=== PATIENT | male | born 1985 | race Caucasian/White ===

== ENCOUNTER 2021-06-17 16:04 | Emergency (ER) | payer MEDICAID, SELFPAY ==
[2021-06-17] VITALS (26 sets, daily range): BP systolic 138; BP diastolic 87; PULSE 88–122; RESP 14–26; TEMP 36.4; O2SAT 95–99
--- NOTE | 2021-06-17 16:39 | NUR.NOTE ---
Block Placer spoke with patients sister to obtain patient history. Patient admitted to her that he has thoughts of hurting himself. Sister states that the family has a history of bipolar and schizophrenia. Patient reports to filing writer that he does hear voices. Sister states the patient does not have a formal diagnosis but he has extreme highs and lows.He stood on a amanda but did not jump. Patient admitted to injecting cocaine prior to coming into the hospital.
[2021-06-17 17:05] LABS: Abs Immature Grans 0.04 10^3/uL (0.0-0.06); Absolute Basophil Count 0.05 10^3/uL (0.0-0.2); Absolute Eosinophil Count 0.07 10^3/uL (0.0-0.7); Absolute Lymphocyte Count 1.15 10^3/uL (1.2-3.4); Absolute Monocyte Count 1.15 10^3/uL (0.1-0.8); Absolute Neutrophil Count 9.54 10^3/uL (1.2-6.7); Basophils % 0.4; Eosinophils % 0.6; HCT 37.7 % (40.0-50.0); HGB 12.7 g/dL (13.5-17.5); Immature Grans % 0.3; Lymphocytes % 9.6; MCHC 33.7 % (32.0-36.0); MCV 86.1 fL (80-95); Monocytes % 9.6; Neutrophils % 79.5; Nucleated RBC 0 %; Platelet Count 296 10^3/uL (130-400); RBC 4.38 10^6/uL (4.36-5.78); RDW 12.6 % (11.8-14.1); RDW-SD 40.1 fL
[2021-06-17] MEDS: LORazepam 1 MG TAB PO (17:11)
[2021-06-17 17:34] LABS: ALT 44 U/L (16-63); AST 21 U/L (15-37); Albumin 3.6 g/dL (3.4-5.0); Alkaline Phosphatase 111 U/L (46-116); Anion Gap 9.1 mmol/L (3-11); BUN 16 mg/dL (7-18); Bilirubin, Total 0.3 mg/dL (0.2-1.0); CO2 27.9 mmol/L (21.0-32.0); CREATININE 0.9 mg/dL (0.70-1.30); Calcium 8.7 mg/dL (8.5-10.1); Chloride 102 mmol/L (98-107); Glucose 92 mg/dL (74-106); Potassium 3.6 mmol/L (3.5-5.1); Sodium 139 mmol/L (136-145); TSH (W/Ref FT4) 1.04 uIU/mL (0.36-3.74); Total Protein 8.1 g/dL (6.4-8.2)
[2021-06-17 17:37] LABS: Acetaminophen < 2 ug/mL (10-30); Salicylate < 2.8 mg/dL (<2.8)
[2021-06-17 17:49] LABS: ETHANOL BLOOD < 3.0 mg/dL (<10)
[2021-06-17] MEDS: Lidocaine 2% Jelly 6 ML SYR (18:15)
--- NOTE | 2021-06-17 18:43 | ED.GENADUL_ITS ---
Discharge Plan Disposition Patient Disposition: [facility] Condition: Stable Discharge Details Clinical Impression: Opioid dependence, Suicidal ideations Primary Care Provider: Unknown,Unknown ED Provider: Bran Wharton Home Meds and New Rx's Prescriptions: No Action hydroxyzine HCl 50 mg tablet 50 mg PO QHS 0RF Vivitrol 380 mg suspension,extended rel recon 380 mg IM QMONTH 0RF Medical Decision Making <NORMAN Mccullough - Last Filed: 06/18/21 17:21> Patient is alert and oriented and medically cleared for psychiatric assessment He initially was tachycardic, at time of reassessment his pulse was 98 He has been cooperative throughout stay, initially expressed frustration with tobacco policy He was offered nicotine patch and inhaler He was given 3 mg of Ativan, 1 mg upon initial presentation and then 2 mg subsequently, sleeping at time of reassessment Mild leukocytosis at 12,000, no obvious source of infection Tox came positive for benzos, positive for cocaine, and positive for THC, patient admits to using all of these medications and as he was at rehab recently, he was given benzodiazepines reportedly during his stay Toya, mental health provider did assess pt in ED, but feels unable to contract for safety at this time. will place patient on an impairment hold for reassessment in the emergency department tomorrow morning Patient is calm and cooperative at time of reassessment Of note, patient was experiencing some urinary retention, likely drug in the, he had 540 cc of urine in his bladder therefore straight catheter was placed He is not able to urinate post event without difficulty signed out to Dr Mancera pending reassessment in the AM at 2305 06/18/21 9:29 --I received signout of patient at [address] Mancera notes no significant events overnight, plan at signout is to await psychiatric reevaluation. I did call [facility] and asked for consultation regarding substance abuse. Will reach out to [facility] human services to request reevaluation at this time. Patient is noting anxiety and requesting additional dosing of Ativan. Ativan 2 mg p.o. ordered. Medical Records Medical records reviewed: Yes I reviewed the patient's medical records. Lab Data Lab results reviewed: Yes I reviewed the patient's lab results. ECG Data Prior ECG tracings: available for review <Bran Wharton MD - Last Filed: 06/21/21 10:14> Patient is alert and oriented and medically cleared for psychiatric assessment He initially was tachycardic, at time of reassessment his pulse was 98 He has been cooperative throughout stay, initially expressed frustration with tobacco policy He was offered nicotine patch and inhaler He was given 3 mg of Ativan, 1 mg upon initial presentation and then 2 mg subsequently, sleeping at time of reassessment Mild leukocytosis at 12,000, no obvious source of infection Tox came positive for benzos, positive for cocaine, and positive for THC, patient admits to using all of these medications and as he was at rehab recently, he was given benzodiazepines reportedly during his stay Toya, mental health provider did assess pt in ED, but feels unable to contract for safety at this time. will place patient on an impairment hold for reassessment in the emergency department tomorrow morning Patient is calm and cooperative at time of reassessment Of note, patient was experiencing some urinary retention, likely drug in the, he had 540 cc of urine in his bladder therefore straight catheter was placed He is not able to urinate post event without difficulty signed out to Dr Mancera pending reassessment in the AM at 2305 06/18/21 9:29 --I received signout of patient at [address] Mancera notes no significant events overnight, plan at signout is to await psychiatric reevaluation. I did call [facility] and asked for consultation regarding substance abuse. Will reach out to [facility] to request reevaluation at this time. Patient is noting anxiety and requesting additional dosing of Ativan. Ativan 2 mg p.o. ordered. 1934 --patient was seen by [facility] and [facility]. 06/20/21 1600 care transition myself from Domenica Huff PA-C. Please see her initial note regarding history, presentation and exam. In brief, patient is a pleasant 35-year-old awaiting placement for suicidality. Patient has been having some symptoms of withdrawal from opiates. Has been receiving as needed Ativan throughout the course of the day. Plan is for him to be possibly transitioned to psychiatric facility tomorrow. Patient had increased anxiety. Is specifically asking for cigarettes. He declined any nicotine replacement. He is requesting more Ativan. Patient given 1 mg of Ativan. At the end of my shift, care transition to care about the with disposition pending. RS -- 06/21/21 1011 --patient has been accepted at [facility]. I spoke with Dr. Owens, discussed ED presentation and course, he will accept the patient in transfer. Care management to arrange transportation. <NORMAN Kim - Last Filed: 06/20/21 23:44> Patient is alert and oriented and medically cleared for psychiatric assessment He initially was tachycardic, at time of reassessment his pulse was 98 He has been cooperative throughout stay, initially expressed frustration with tobacco policy He was offered nicotine patch and inhaler He was given 3 mg of Ativan, 1 mg upon initial presentation and then 2 mg subsequently, sleeping at time of reassessment Mild leukocytosis at 12,000, no obvious source of infection Tox came positive for benzos, positive for cocaine, and positive for THC, patient admits to using all of these medications and as he was at rehab recently, he was given benzodiazepines reportedly during his stay Toya, mental health provider did assess pt in ED, but feels unable to contract for safety at this time. will place patient on an impairment hold for reassessment in the emergency department tomorrow morning Patient is calm and cooperative at time of reassessment Of note, patient was experiencing some urinary retention, likely drug in the, he had 540 cc of urine in his bladder therefore straight catheter was placed He is not able to urinate post event without difficulty signed out to Dr Mancera pending reassessment in the AM at 2305 06/18/21 9:29 --I received signout of patient at [address] Mancera notes no significant events overnight, plan at signout is to await psychiatric reevaluation. I did call [facility] and asked for consultation regarding substance abuse. Will reach out to [facility] human services to request reevaluation at this time. Patient is noting anxiety and requesting additional dosing of Ativan. Ativan 2 mg p.o. ordered. 1934 --patient was seen by [facility] and [facility]. 06/20/21 1600 care transition myself from Domenica Huff PA-C. Please see her initial note regarding history, presentation and exam. In brief, patient is a pleasant 35-year-old awaiting placement for suicidality. Patient has been having some symptoms of withdrawal from opiates. Has been receiving as needed Ativan throughout the course of the day. Plan is for him to be possibly transitioned to psychiatric facility tomorrow. Patient had increased anxiety. Is specifically asking for cigarettes. He declined any nicotine replacement. He is requesting more Ativan. Patient given 1 mg of Ativan. At the end of my shift, care transition to care about the with disposition pending. HPI <NORMAN Mccullough - Last Filed: 06/18/21 17:21> General Date/Time Provider Initiated Documentation: 06/17/21 16:17 . HPI Narrative: This 35-year-old gentleman with history of IV cocaine use and IV Suboxone use presents with suicidal ideation. Denies any chest pain or shortness of breath. Denies specific plan today but yesterday he felt like he wanted to overdose on cocaine. He states occasionally he also uses kratom. He states that he has auditory and visual hallucinations. Denies any attempts to harm self. Related Data Home Medications Medication Instructions Recorded Confirmed hydroxyzine HCl 50 mg tablet 50 mg PO QHS 06/21/20 06/17/21 naltrexone microspheres 380 mg 380 mg IM QMONTH 06/21/20 intramuscular suspension,extended release (Vivitrol) Allergies Allergy/AdvReac Type Severity Reaction Status Date / Time No Known Allergies Allergy Verified 06/17/21 16:21 General Stated Complaint: PsychEval TAI: 2 Review of Systems <NORMAN Mccullough - Last Filed: 06/18/21 17:21> All systems reviewed & are unremarkable except as noted in HPI and below PFSH <NORMAN Mccullough - Last Filed: 06/18/21 17:21> All Active Problems (Updated 06/18/21 @ 17:21 by NORMAN Mccullough) Suicidal ideations (Acute) ADHD (Acute) Opioid dependence (Acute) Anxiety (Chronic) Social History Smoking/Tobacco Use Status: Current every day Smoking risk assessment performed?: Yes Alcohol Intake: former Drug use: Binges Substance use type: crack/cocaine, IV drugs and methamphetamine Do you feel safe at home: Yes Do you feel safe in your relationship?: Yes Exam <NORMAN Mccullough - Last Filed: 06/18/21 17:21> Const General: cooperative and no acute distress Eyes Pupils: PERRL Resp Effort & Inspection: normal respiratory effort Auscultation: clear to auscultation bilaterally Cardio Rate: tachycardic Rhythm: regular rhythm Skin Other: No obvious cellulitis Track wilson noted Neuro General: patient alert and patient oriented x3 Cranial Nerves: CN's II-XI intact bilaterally Cognition: normal cognition Psych Appearance: disheveled Affect: sad Attitude: cooperative Thought Process: tangential Thought Content: suicidality Insight: limited Judgment: limited Course <NORMAN Mccullough - Last Filed: 06/18/21 17:21> Vital Signs Vital signs: Vital Signs Temperature 36.4 C L 06/17/21 16:06 Pulse 122 H 06/17/21 16:06 Respiratory Rate 16 06/17/21 16:06 Blood Pressure 138/87 06/17/21 16:06 Pulse Oximetry 99 06/17/21 16:06 Temperature 36.4 C L 06/17/21 16:06 Temperature Source Skin 06/17/21 16:06 Pulse 122 H 06/17/21 16:06 Pulse 106 H 06/17/21 18:40 Respiratory Rate 25 H 06/17/21 18:40 Respiratory Effort 06/17/21 16:25 Blood Pressure 138/87 06/17/21 16:06 Blood Pressure Position Sitting 06/17/21 16:06 Pulse Oximetry 95 06/17/21 18:40 Oxygen Delivery Method Room Air 06/17/21 16:06 Oxygen Flow Rate 0 06/17/21 16:06 Pain Level 8 06/17/21 16:06 Comment 06/17/21 16:06 Lab/Test Results Lab/Test Results: Laboratory Tests Range/Units 06/17/21 06/17/21 06/17/21 16:50 16:50 16:50 WBC (4.4-10.8) 10^3/uL 12.00 H RBC (4.36-5.78) 10^6/uL 4.38 Hgb (13.5-17.5) g/dL 12.7 L Hct (40.0-50.0) % 37.7 L MCV (80-95) fL 86.1 MCH (27.0-33.0) pg 29.0 MCHC (32.0-36.0) % 33.7 RDW (11.8-14.1) % 12.6 Plt Count (130-400) 10^3/uL 296 MPV (8.0-11.0) fL 9.0 Immature Gran % 0.3 Neutrophils % 79.5 Lymphocytes % 9.6 Monocytes % 9.6 Eosinophils % 0.6 Basophils % 0.4 Nucleated RBC % % 0 Absolute Neutrophils (1.2-6.7) 10^3/uL 9.54 H Absolute Lymphocytes (1.2-3.4) 10^3/uL 1.15 L Absolute Monocytes (0.1-0.8) 10^3/uL 1.15 H Absolute Eosinophils (0.0-0.7) 10^3/uL 0.07 Absolute Basophils (0.0-0.2) 10^3/uL 0.05 Sodium (136-145) mmol/L 139 Potassium (3.5-5.1) mmol/L 3.6 Chloride (98-107) mmol/L 102 Carbon Dioxide (21.0-32.0) mmol/L 27.9 Anion Gap (3-11) mmol/L 9.1 BUN (7-18) mg/dL 16 Creatinine (0.70-1.30) mg/dL 0.9 Estimated GFR/1.73 m2 (mL/min/1.73m2) >= 60.00 Glucose (74-106) mg/dL 92 Calcium (8.5-10.1) mg/dL 8.7 Total Bilirubin (0.2-1.0) mg/dL 0.3 AST (15-37) U/L 21 ALT (16-63) U/L 44 Alkaline Phosphatase (46-116) U/L 111 Total Protein (6.4-8.2) g/dL 8.1 Albumin (3.4-5.0) g/dL 3.6 TSH (0.36-3.74) uIU/mL 1.04 Salicylates (<2.8) mg/dL < 2.8 Acetaminophen (10-30) ug/mL < 2 Ethyl Alcohol (<10) mg/dL < 3.0 Sign Out <NORMAN Mccullough - Last Filed: 06/18/21 17:21> Sign Out Data: Sign Out Comment: on hold by for reassessment in AM for SI/polysubstance abuse SI currently, no plan Last updated by Domenica Huff PA at 06/17/21 23:23 Sign Out Comment: No events overnight. Awaiting placement. Last updated by Mckenzie Rojas DO at 06/21/21 07:12 Sign Out Comment: Stable throughout the evening. No intervention required. Reassessment in the morning. Last updated by Arturo Mancera DO at 06/18/21 07:05 Sign Out Comment: Being held for inpatient treatment. Seen by [facility]. Last updated by Bran Wharton MD at 06/18/21 19:59 Sign Out Comment: Stable throughout the night. Mental health reassessment in the morning. Last updated by Arturo Mancera DO at 06/19/21 07:56 Sign Out Comment: Patient signed out to Dr. Jimenez at time of shift change with voluntary inpatient placement pending for suicidality. Patient calm and cooperative today, requested Ativan, received 1 mg p.o. Ativan this afternoon. Last updated by Mary Wharton MD at 06/19/21 15:44 Sign Out Comment: VOluntary, awaits ? brattleboo in AM. Villalejuan jose requested trop/EKG which were performed. Last updated by Oscar Jimenez MD at 06/19/21 22:23 Sign Out Comment: No events overnight. Remains voluntary. Awaiting placement. Last updated by Mckenzie Rojas DO at 06/20/21 08:01 Sign Out Comment: MH, voluntary, SI, pending placement, opiate WD Last updated by Domenica Huff PA at 06/20/21 15:47 Sign Out Comment: Patient department for voluntary placement at psychiatric facility for suicidality and drug abuse. Plan is for mental health to reassess in the morning with hopeful transfer facility. Has been using Ativan intermittently to help with reported withdrawal symptoms. Last updated by Yudelka Veronica PA at 06/20/21 23:49
--- NOTE | 2021-06-17 18:45 | RT.EKG_ITS ---
APPROVED REPORT Exam: Resting ECG Reason for Exam: tachycardia Patient Location: E HR:92 bpm ECG Measurements Heart Rate 92 AXIS OH 135 P 82 QRSd 93 QRS 76 QT 361 T 58 QTc 447 Conclusion Incomplete analysis due to missing data in precordial lead(s) Sinus rhythm...normal P axis, V-rate 60- 99 Anterior infarct, age indeterminate...Q >35mS, T neg, in V2-V5 Physician: no stemi
[2021-06-17 18:47] LABS: *AMPHETAMINES SCREEN URINE Negative (Negative); *BARBITURATES SCREEN URINE Negative (Negative); *BENZODIAZEPINES SCREEN URINE Positive (Negative); Cannabinoids THC Positive (Negative); Cocaine Screen,Urine Positive (Negative); METHADONE URINE SCREEN Negative (Negative); OPIATES URINE SCREEN Negative (Negative); Tricyclic Antidepressants Negative (Negative)
[2021-06-17] MEDS: LORazepam 1 MG TAB 2 MG PO (21:24)
[2021-06-18] VITALS: PULSE 98; RESP 21
[2021-06-18 00:10] VITALS: PULSE 93; RESP 20
[2021-06-18 00:20] VITALS: PULSE 91; RESP 20
[2021-06-18 00:30] VITALS: PULSE 107; RESP 20
[2021-06-18 00:40] VITALS: RESP 14
--- NOTE | 2021-06-18 09:02 | NUR.NOTE ---
Nursing Note:Margie [phone] sister
[2021-06-18 09:27] VITALS: BP 113/75; PULSE 82; TEMP 36.8; O2SAT 98
[2021-06-18] MEDS: LORazepam 1 MG TAB (09:27)
--- NOTE | 2021-06-18 12:52 | CMSP_ITS ---
- If Service Date Differs Date of service: 06/18/21 Time of Service: 12:52 Care Management Safety Plan Status: Voluntary - Reason for Wait Reason for Wait: Inpatient Admission VOLUNTARY FOR INPATIENT PSYCHIATRIC STABILIZATION. Patient is appropriate in all interactions since arriving at [facility]; Pt has demonstrated appropriate coping and communication skills, has articulated his or her needs and concerns and is fully engaged during staff interactions. A huddle was done to discuss this safety plan at 12:35pm: Dr. Wharton, ED Provider, Nursing Vendor Relationship Manager, RIGO Montalvo, Chari, and GAYATRI Elizabeth, in attendance. Safety plan has been established with patient, and care team, to adhere to patient goals, identify restrictions based on behavioral status, address nutrition, and determine allowed personal belongings, tools for hygiene and personal care. Determine level of activity including ambulation, level of supervision, visitors, and determine privileges based on behaviors and level of engagement by pt. [place] will continue to be screened according to protocol by [facility], while waiting for placement at an appropriate psych facility. He is here voluntarily, however if he chooses to leave [place] he will need to be EE'd per [facility] meter engineer. SAFETY PLAN: 1. Will remain on suicide precautions. In Paper Clothes 2. Will remain in room under direct supervision of one-on-one staff at all times provided by [employer]; LIG[employer], RATCHET SETTER ornamental brick installer. 3. May have paper cups, plates, finger foods as well as a cardboard spoon with which to eat meals. 4. Follow [facility] Management of the Admitted Behavioral Health Patient policy. 5. Comfort bath system only, shower permitted with escort at RN discretion. 6. Personal belongings: will be limited to personal cell phone. Patient has been cooperative, calm and appropriate and was granted cell phone privileges at RN discretion. 7. Visitors- Limited to family at this time at RN discretion. His sister Margie has been identified at a good support person. 8. Activities: soft cart items, coloring w/ crayons, tablet, music therapy per RN discretion. 9. Bathroom privileges with escort in the ED, available in room without limitation on M/S. 10. Phone: contact limited to family at this time, via cordless phone or personal cell phone at RN discretion. 11. Due to VOLUNTARY status, if patient wishes to leave [facility], staff will contact [facility] Crisis Screener ([phone]) and On-Call Weather Stripper ([phone]) as soon as possible. In the event of elopement, notify [facility] Police ([phone]). Patient is currently voluntarily at [facility] and seeking inpatient admission when a bed becomes available. [facility] Frontline Fish And Wildlife Biologist will continue seeking placement. Please contact the Property Caretaker Weather Stripper ([phone]) and [facility] Fish And Wildlife Biologist ([phone]) for any needed changes in the Safety Plan. Safety plan has been provided to interdepartmental care team.
--- NOTE | 2021-06-18 15:54 | PDOC.ERCMPRO ---
- If Service Date Differs Date of service: 06/18/21 Time of Service: 15:54 Care Management Progress Note S/O: [place] has been calm, cooperative and appropriate throughout his ER admission. He requires 1:1 observation. CM huddled with ER staff and the consensus is that cell phone privileges should be granted to [place]. His cell phone will remain in his room at RN discretion. [facility] will continue to screen [place] per protocol and the clinician sent referrals to appropriate inpatient psych facilities. A: 35 year old male who presented to the ER on 06/17/21 for SI and substance use. P: [place] will continue to be screened according to protocol by [facility], while waiting for placement at an appropriate psych facility. He is here voluntarily, however if he chooses to leave [place] he will need to be EE'd per [facility] manager clinical pharmacy. CM will continue to support disposition planning. - MH Services (Omit if N/A) Referred to Internal [facility] (ED embedded) case reviewer?: Yes - Status Status: Voluntary - Reason for Wait Reason for Wait: Inpatient Admission (Waiting for placement at an appropriate inpatient psych facility.)
--- NOTE | 2021-06-18 18:51 | PDOC.MHCN_ITS ---
Date of service: 06/18/21 Time of Service: 11:30 Mental Health Crisis Note Presenting Issue How did you arrive at the ED and why did you come: Client arrived to ED for SI with a plan and high intent. Precipitating Factors Client is endorsing SI. Assessment will be used as a preliminary. Client was struggling to engage due to being in pain from the substances he used the night before. More indepth assessment will be done tomorrow (06/19), with use of assessment tools. If client is still unable to engage, assessment will need to be conducted in person. Clients sister reports that the client is endorsing SI w ith a plan to overdose. Clients sister reports multiple overdose attempts over the last few months. Clients sister also reports that the client reports hallucinations and/or delusions. Client is currently seeking voluntary psychiatric treatment. Disposition BEHAVIOR: Clam, not engaged. Client struggled to follow questions and could not keep his eyes open. EYE CONTACT: Client could not keep his eyes open. MOOD: Client reports he is in pain. Client appears to be withdrawn. AFFECT: Flat. APPETITE: Not assessed at this time. SLEEP(trouble falling/staying asleep: Not assessed at this time. Plan Client is in need of psychiatric treatment for both mental health and substance abuse. Referrals will be sent to , [facility], [place], and [facility]. If client attempts to leave, please contact [facility] immediately, as an EE may have to be written. Client is currently willing to stay voluntarily. Sister reports that the client may attempt to leave due to nicotine withdrawls. Signature Clinician's Name/Title: Jenny Fuentes, ESC
--- NOTE | 2021-06-18 20:48 | NUR.NOTE ---
Patient took a shower and changed his clothing, I also gave him fresh linens, cleaned the floor and refreshed drinks.
[2021-06-18] MEDS: LORazepam 1 MG TAB PO ×2 (21:22→23:18)
[2021-06-18] MEDS: Nicotine 21 MG/24 HR PATCH (22:36)
[2021-06-18] MEDS: diphenhydrAMINE 25 MG CAP 50 MG PO (23:18)
[2021-06-18] MEDS: Melatonin 3 MG TAB PO (23:18)
[2021-06-19 10:50] VITALS: BP 124/84; PULSE 83; RESP 20; TEMP 36.7; O2SAT 98
--- NOTE | 2021-06-19 12:11 | W.EDPROG ---
<Mckenzie Rojas DO - Last Filed: 06/21/21 07:44> Date of service: 06/21/21 Time of Service: 07:44 Medical Decision Making <Mary Wharton MD - Last Filed: 06/26/21 07:45> Patient signed out to me at time of shift change by Dr. Mancera with mental health reassessment pending. Please see his note for initial history and physical. No acute events during my shift. Patient calm cooperative. 06/20/21 Dr. Rojas 08 -- No acute events overnight. Case endorsed to oncoming provider to f/u with mental health and care management pending placement. 1500 06/20/21 patient assessed on several occasions, very anxious, gave clonidine for chills associated with slight withdrawal symptoms and gave 2 mg of Ativan x2 for anxiety likely withdrawal, tolerated well, calm, cooperative at time of reassessment 06/21/21 Dr. Rojas 1230am -- Pt requesting a dose of 2mg ativan for anxiety. <Mckenzie Rojas DO - Last Filed: 06/21/21 07:44> Patient signed out to me at time of shift change by Dr. Mancera with mental health reassessment pending. Please see his note for initial history and physical. 06/20/21 Dr. Rojas 08 -- No acute events overnight. Case endorsed to oncoming provider to f/u with mental health and care management pending placement. 149906/20/21 patient assessed on several occasions, very anxious, gave clonidine for chills associated with slight withdrawal symptoms and gave 2 mg of Ativan x2 for anxiety likely withdrawal, tolerated well, calm, cooperative at time of reassessment 06/21/21 Dr. Rojas 1230am -- Pt requesting a dose of 2mg ativan for anxiety. Medical Records Medical records reviewed: Yes I reviewed the patient's medical records. <NORMAN Mccullough - Last Filed: 06/21/21 08:44> Patient signed out to me at time of shift change by Dr. Mancera with mental health reassessment pending. Please see his note for initial history and physical. 06/20/21 Dr. Rojas 08 -- No acute events overnight. Case endorsed to oncoming provider to f/u with mental health and care management pending placement. 1500 06/20/21 patient assessed on several occasions, very anxious, gave clonidine for chills associated with slight withdrawal symptoms and gave 2 mg of Ativan x2 for anxiety likely withdrawal, tolerated well, calm, cooperative at time of reassessment Sign Out <Mary Wharton MD - Last Filed: 06/26/21 07:45> Sign Out Data: Sign Out Comment: on hold by for reassessment in AM for SI/polysubstance abuse SI currently, no plan Last updated by Domenica Huff PA at 06/17/21 23:23 Sign Out Comment: No events overnight. Awaiting placement. Last updated by Mckenzie Rojas DO at 06/21/21 07:12 Sign Out Comment: Stable throughout the evening. No intervention required. Reassessment in the morning. Last updated by Arturo Mancera DO at 06/18/21 07:05 Sign Out Comment: Being held for inpatient treatment. Seen by [facility]. Last updated by Bran Wharton MD at 06/18/21 19:59 Sign Out Comment: Stable throughout the night. Mental health reassessment in the morning. Last updated by Arturo Mancera DO at 06/19/21 07:56 Sign Out Comment: Patient signed out to Dr. Jimenez at time of shift change with voluntary inpatient placement pending for suicidality. Patient calm and cooperative today, requested Ativan, received 1 mg p.o. Ativan this afternoon. Last updated by Mary Wharton MD at 06/19/21 15:44 Sign Out Comment: VOluntary, awaits ? ledylebocharlene in AM. [place]a requested trop/EKG which were performed. Last updated by Oscar Jimenez MD at 06/19/21 22:23 Sign Out Comment: No events overnight. Remains voluntary. Awaiting placement. Last updated by Mckenzie Rojas DO at 06/20/21 08:01 Sign Out Comment: MH, voluntary, SI, pending placement, opiate WD Last updated by Domenica Huff PA at 06/20/21 15:47 Sign Out Comment: Patient department for voluntary placement at psychiatric facility for suicidality and drug abuse. Plan is for mental health to reassess in the morning with hopeful transfer facility. Has been using Ativan intermittently to help with reported withdrawal symptoms. Last updated by Yudelka Veronica PA at 06/20/21 23:49 Discharge Plan Disposition Patient Disposition: [facility] Condition: Stable Discharge Details Clinical Impression: Opioid dependence, Suicidal ideations Primary Care Provider: Unknown,Unknown ED Provider: Bran Wharton Home Meds and New Rx's Prescriptions: No Action hydroxyzine HCl 50 mg tablet 50 mg PO QHS 0RF Vivitrol 380 mg suspension,extended rel recon 380 mg IM QMONTH 0RF Discharge Data Discharge Date/Time-TO BE ENTERED AT DEPARTURE: 06/21/21 12:35 <Oscar Jimenez MD - Last Filed: 06/19/21 17:38> Pt remained stable, remains voluntary. Vital Signs Vital signs: Vital Signs Temperature 36.4 C L 06/17/21 16:06 Pulse 122 H 06/17/21 16:06 Respiratory Rate 16 06/17/21 16:06 Blood Pressure 138/87 06/17/21 16:06 Pulse Oximetry 99 06/17/21 16:06 Temperature 36.7 C 06/19/21 10:50 Temperature Source Oral 06/19/21 10:50 Pulse 83 06/19/21 10:50 Pulse 107 H 06/18/21 00:30 Respiratory Rate 20 06/19/21 10:50 Respiratory Effort 06/17/21 16:25 Blood Pressure 124/84 06/19/21 10:50 Blood Pressure Position Sitting 06/17/21 16:06 Pulse Oximetry 98 06/19/21 10:50 Oxygen Delivery Method Room Air 06/19/21 10:50 Oxygen Flow Rate 0 06/19/21 10:50 Pain Level 8 06/17/21 16:06 Comment 06/17/21 16:06 Lab/Test Results Lab/Test Results: Laboratory Tests Range/Units 06/17/21 06/17/21 06/17/21 16:50 16:50 16:50 WBC (4.4-10.8) 10^3/uL 12.00 H RBC (4.36-5.78) 10^6/uL 4.38 Hgb (13.5-17.5) g/dL 12.7 L Hct (40.0-50.0) % 37.7 L MCV (80-95) fL 86.1 MCH (27.0-33.0) pg 29.0 MCHC (32.0-36.0) % 33.7 RDW (11.8-14.1) % 12.6 Plt Count (130-400) 10^3/uL 296 MPV (8.0-11.0) fL 9.0 Immature Gran % 0.3 Neutrophils % 79.5 Lymphocytes % 9.6 Monocytes % 9.6 Eosinophils % 0.6 Basophils % 0.4 Nucleated RBC % % 0 Absolute Neutrophils (1.2-6.7) 10^3/uL 9.54 H Absolute Lymphocytes (1.2-3.4) 10^3/uL 1.15 L Absolute Monocytes (0.1-0.8) 10^3/uL 1.15 H Absolute Eosinophils (0.0-0.7) 10^3/uL 0.07 Absolute Basophils (0.0-0.2) 10^3/uL 0.05 Sodium (136-145) mmol/L 139 Potassium (3.5-5.1) mmol/L 3.6 Chloride (98-107) mmol/L 102 Carbon Dioxide (21.0-32.0) mmol/L 27.9 Anion Gap (3-11) mmol/L 9.1 BUN (7-18) mg/dL 16 Creatinine (0.70-1.30) mg/dL 0.9 Estimated GFR/1.73 m2 (mL/min/1.73m2) >= 60.00 Glucose (74-106) mg/dL 92 Calcium (8.5-10.1) mg/dL 8.7 Total Bilirubin (0.2-1.0) mg/dL 0.3 AST (15-37) U/L 21 ALT (16-63) U/L 44 Alkaline Phosphatase (46-116) U/L 111 Total Protein (6.4-8.2) g/dL 8.1 Albumin (3.4-5.0) g/dL 3.6 TSH (0.36-3.74) uIU/mL 1.04 Salicylates (<2.8) mg/dL < 2.8 Urine Opiates Screen (Negative) Urine Methadone Screen (Negative) Acetaminophen (10-30) ug/mL < 2 Ur Barbiturates Screen (Negative) Ur Tricyclics Screen (Negative) Ur Amphetamines Screen (Negative) U Benzodiazepines Scrn (Negative) Urine Cocaine Screen (Negative) Ur THC Screen (Negative) Ethyl Alcohol (<10) mg/dL < 3.0 Range/Units 06/17/21 18:15 WBC (4.4-10.8) 10^3/uL RBC (4.36-5.78) 10^6/uL Hgb (13.5-17.5) g/dL Hct (40.0-50.0) % MCV (80-95) fL MCH (27.0-33.0) pg MCHC (32.0-36.0) % RDW (11.8-14.1) % Plt Count (130-400) 10^3/uL MPV (8.0-11.0) fL Immature Gran % Neutrophils % Lymphocytes % Monocytes % Eosinophils % Basophils % Nucleated RBC % % Absolute Neutrophils (1.2-6.7) 10^3/uL Absolute Lymphocytes (1.2-3.4) 10^3/uL Absolute Monocytes (0.1-0.8) 10^3/uL Absolute Eosinophils (0.0-0.7) 10^3/uL Absolute Basophils (0.0-0.2) 10^3/uL Sodium (136-145) mmol/L Potassium (3.5-5.1) mmol/L Chloride (98-107) mmol/L Carbon Dioxide (21.0-32.0) mmol/L Anion Gap (3-11) mmol/L BUN (7-18) mg/dL Creatinine (0.70-1.30) mg/dL Estimated GFR/1.73 m2 (mL/min/1.73m2) Glucose (74-106) mg/dL Calcium (8.5-10.1) mg/dL Total Bilirubin (0.2-1.0) mg/dL AST (15-37) U/L ALT (16-63) U/L Alkaline Phosphatase (46-116) U/L Total Protein (6.4-8.2) g/dL Albumin (3.4-5.0) g/dL TSH (0.36-3.74) uIU/mL Salicylates (<2.8) mg/dL Urine Opiates Screen (Negative) Negative Urine Methadone Screen (Negative) Negative Acetaminophen (10-30) ug/mL Ur Barbiturates Screen (Negative) Negative Ur Tricyclics Screen (Negative) Negative Ur Amphetamines Screen (Negative) Negative U Benzodiazepines Scrn (Negative) Positive A Urine Cocaine Screen (Negative) Positive A Ur THC Screen (Negative) Positive A Ethyl Alcohol (<10) mg/dL
--- NOTE | 2021-06-19 13:03 | PDOC.CMSAFED ---
- If Service Date Differs Date of service: 06/19/21 Time of Service: 13:03 Care Management Safety Plan Status: Voluntary - Reason for Wait Reason for Wait: Inpatient Admission VOLUNTARY FOR INPATIENT PSYCHIATRIC STABILIZATION. Patient is appropriate in all interactions since arriving at [facility]; Pt has demonstrated appropriate coping and communication skills, has articulated his or her needs and concerns and is fully engaged during staff interactions. CM discussed patient individually with RN, NKHS, and Nursing Showcase Trimmer, no changes were made to the safety plan. Safety plan has been established with patient, and care team, to adhere to patient goals, identify restrictions based on behavioral status, address nutrition, and determine allowed personal belongings, tools for hygiene and personal care. Determine level of activity including ambulation, level of supervision, visitors, and determine privileges based on behaviors and level of engagement by pt. SAFETY PLAN: 1. Will remain on suicide precautions. In Paper Clothes 2. Will remain in room under direct supervision of one-on-one staff at all times provided by [employer]; [employer]IGIA, BRIDGE RIGGER exterior door installer. 3. May have paper cups, plates, finger foods as well as a cardboard spoon with which to eat meals. 4. Follow [facility] Management of the Admitted Behavioral Health Patient policy. 5. Comfort bath system only, shower permitted with escort at RN discretion. 6. Personal belongings: will be limited to personal cell phone. Patient has been cooperative, calm and appropriate and was granted cell phone privileges at RN discretion. 7. Visitors- Limited to family at this time at RN discretion. His sister Margie has been identified at a good support person. 8. Activities: soft cart items, coloring w/ crayons, tablet, music therapy per RN discretion. 9. Bathroom privileges with escort in the ED, available in room without limitation on M/S. 10. Phone: contact limited to family at this time, via cordless phone or personal cell phone at RN discretion. 11. Due to VOLUNTARY status, if patient wishes to leave [facility], staff will contact [facility] Crisis Screener ([phone]) and On-Call Entry Level ([phone]) as soon as possible. In the event of elopement, notify [facility] Police ([phone]). Patient is currently voluntarily at [facility] and seeking inpatient admission when a bed becomes available. [facility] Frontline Back Office Medical Assistant will continue seeking placement. Please contact the Traffic Checker Entry Level ([phone]) and [facility] Back Office Medical Assistant ([phone]) for any needed changes in the Safety Plan. Safety plan has been provided to interdepartmental care team.
[2021-06-19] MEDS: LORazepam 1 MG TAB PO (13:22)
--- NOTE | 2021-06-19 15:03 | PDOC.MHPN2 ---
Date of service: 06/19/21 Time of Service: 10:00 Mental Health Progress Note Progress Note Progress Note: Presenting Issue:Client was brought the [facility] via his sister after endorsing SI with a plan and high intent. Client reports plan of doing hot shots a high dosage of fetanyl or Inhaling exhaust co2 poisoning by connecting the a hose to the exhaust pipe. Precipitating Factors Disposition * Behavior: Cooperative *Eye Contact:appropriate *Mood:Client reports feeling lost. *Affect:Flat, depressed. *Appetite:Client reports loss of appetite. *Sleep(troubel falling/staying asleep): Client reports difficulties falling and staying asleep. Client reports his sleep has been interrupted. Plan(please elaborate and include that physician is consulted with plan and/or placement):Client continues to endorse SI with multiple plans and reports intent. Client has history of multiple attempts. Client reports impulsive behaviors and long history of substance abuse. Client is voluntarily seeking in-patient treatment. Client is not appropriate for Crisis bed due to risk of detox. Due to acuity client can not be in my opinion can not be safety planned back into the community without short term inpatient treatment. Client will be reassessed daily until placement is found. Referral has been sent to [facility], [facility], [place], and [facility]. Clinician's Name , Title, and Signature John Flood BA Make sure that you are photocopying and submitting this to [facility] records Dept. to be scanned into chart.
--- NOTE | 2021-06-19 16:49 | CMPROGNOTE_ITS ---
- If Service Date Differs Date of service: 06/19/21 Time of Service: 16:49 Care Management Progress Note S/O: Israel met with a excellence coach from [facility] this morning. He also met with John [facility] crisis screener, via zoom today. Israel continues to report suicidal ideation with intent and plan. Since being at [facility], he has remained calm, cooperative and appropriate. He presents with flat affect and depressed mood and continues to meet criteria for a voluntary psych hospitalization. A: Israel is a 35 year old male who presented to the ER on 06/17/21 for SI and substance use. P: Israel will remain at [facility] voluntarily and will be reassessed daily by [facility] until a placement at an inpatient psych facility can be secured for him. [facility], [facility], [facility], and [facility] for review. CM will continue to follow. - Status Status: Voluntary - Reason for Wait Reason for Wait: Inpatient Admission
--- NOTE | 2021-06-19 16:49 | PDOC.ERCMPRO ---
- If Service Date Differs Date of service: 06/19/21 Time of Service: 16:49 Care Management Progress Note S/O: Israel met with a cost recovery technician from [facility] this morning. He also met with John [facility] crisis screener, via zoom today. Israel continues to report suicidal ideation with intent and plan. Since being at [facility], he has remained calm, cooperative and appropriate. He presents with flat affect and depressed mood and continues to meet criteria for a voluntary psych hospitalization. A: Israel is a 35 year old male who presented to the ER on 06/17/21 for SI and substance use. P: Israel will remain at [facility] voluntarily and will be reassessed daily by [facility] until a placement at an inpatient psych facility can be secured for him. [facility], [facility], [facility], and [facility] for review. CM will continue to follow. - Status Status: Voluntary - Reason for Wait Reason for Wait: Inpatient Admission
[2021-06-19] MEDS: LORazepam 1 MG TAB 2 MG PO ×2 (18:03→22:03)
[2021-06-19] MEDS: Nicotine 21 MG/24 HR PATCH TD (18:08)
--- NOTE | 2021-06-19 19:45 | RT.EKG_ITS ---
APPROVED REPORT Exam: Resting ECG Reason for Exam: substance abuse Patient Location: E HR:103 bpm ECG Measurements Heart Rate 103 AXIS VT 117 P 71 QRSd 94 QRS 71 QT 339 T 49 QTc 444 Conclusion Sinus tachycardia. Probable left atrial enlargement ST elev - normal early repol pattern...ST elevation, age<55
[2021-06-19 20:42] LABS: Troponin I < 50 ng/L (<or=60)
[2021-06-19 20:53] LABS: Bilirubin Negative (Negative); Blood Negative (Negative); Clarity Clear (Clear); Glucose Negative (Negative); Ketones Negative (Negative); Leukocyte Esterase Negative (Negative); Nitrite Negative (Negative); Specific Gravity 1.025 (1.005-1.025); Urobilinogen 0.2 EU/dL (Up TO 0.2); pH 7.5 (5-8)
[2021-06-19 21:00] LABS: Bacteria Few HPF (Negative); C & S Indicated? No; Casts Negative LPF (Negative); Crystals Negative HPF (Negative); Epithelial Cells Moderate HPF (Negative); Mucus Moderate (Negative); RBC 0-2 HPF (0-2); WBC 0-2 HPF (0-5)
--- NOTE | 2021-06-19 21:51 | NUR.NOTE ---
Pt noted to void without difficulty today. Urinalysis specimen obtained.
[2021-06-19 21:57] VITALS: BP 123/81; PULSE 102; RESP 20; TEMP 36.8; O2SAT 96
--- NOTE | 2021-06-20 09:24 | NUR.NOTE ---
Nursing Note: 0923 Went into room to ask patient about breakfast, he stated he would take whatever I ordered. He is feeling anxious, jittery, and feels like he is withdrawing. Asked about lunch and he stated he would not be here for lunch. Made Domenica Huff and Erin Guadarrama aware of the situation. Chari Cosby
[2021-06-20] MEDS: LORazepam 2 MG/ML VIAL IM (09:32)
[2021-06-20] MEDS: LORazepam 1 MG TAB PO ×2 (10:04→20:16)
[2021-06-20] MEDS: cloNIDine 0.1 MG TAB PO (10:04)
--- NOTE | 2021-06-20 13:59 | PDOC.MHCN_ITS ---
Date of service: 06/20/21 Time of Service: 13:59 Mental Health Crisis Note Presenting Issue How did you arrive at the ED and why did you come: Pt arrived on 06.18.2021 for increased SI with plan. Precipitating Factors Pt self-reported his risk a / today. He is not showing any signs of delusions at this time. Disposition BEHAVIOR: Pt is cooperative and engaged. He is fully oriented. EYE CONTACT: fair MOOD: depressed, stressed and anxious AFFECT: congruent with mood APPETITE: good SLEEP(trouble falling/staying asleep: Pt reported nightmares continuously through the night usually involving an ex and some bizarre situations. Plan Pt continues to meet criteria for hospitalization. Pt will remain at [facility] pending admission to a psychiatric hospital on a voluntary admission. Pt will be assessed daily by [facility]. No beds available today. Signature Clinician's Name/Title: Alexia Thompson MS, [facility] Emergency Services Clinician, [facility]
--- NOTE | 2021-06-20 14:08 | CMSP_ITS ---
- If Service Date Differs Date of service: 06/20/21 Time of Service: 14:08 Care Management Safety Plan Status: Voluntary - Reason for Wait Reason for Wait: Inpatient Admission VOLUNTARY FOR INPATIENT PSYCHIATRIC STABILIZATION. Patient is appropriate in all interactions since arriving at [facility]; Pt has demonstrated appropriate coping and communication skills, has articulated his or her needs and concerns and is fully engaged during staff interactions. CM discussed patient individually with Josefa, Charge Nurse, no changes were made to the safety plan. Unable to hold a huddle due to volume of patients in the ED. Safety plan has been established with patient, and care team, to adhere to patient goals, identify restrictions based on behavioral status, address nutrition, and determine allowed personal belongings, tools for hygiene and personal care. Determine level of activity including ambulation, level of supervision, visitors, and determine privileges based on behaviors and level of engagement by pt. SAFETY PLAN: 1. Will remain on suicide precautions. In Paper Clothes 2. Will remain in room under direct supervision of one-on-one staff at all times provided by [employer]; LIGIA, TURBOGENERATOR OPERATOR director of elementary education. 3. May have paper cups, plates, finger foods as well as a cardboard spoon with which to eat meals. 4. Follow [facility] Management of the Admitted Behavioral Health Patient policy. 5. Shower permitted with escort at RN discretion. 6. Personal belongings will be limited to personal cell phone. Patient has been cooperative, calm and appropriate and was granted cell phone privileges at RN discretion. 7. Visitors: Limited to family at this time at RN discretion. His sister Margie has been identified as a good support person. 8. Activities: soft cart items, coloring w/ crayons, music tablet, television if available, and other activities at RN discretion. 9. Bathroom privileges with escort in the ED, available in room without limitation on M/S. 10. Phone: contact limited to family at this time, via cordless hospital phone or personal cell phone at RN discretion. 11. Due to VOLUNTARY status, if patient wishes to leave [facility], staff will contact [facility] Crisis Screener ([phone]) and On-Call Aquacultural Worker Supervisor ([phone]) as soon as possible. In the event of elopement, notify [facility] Police ([phone]). Patient is currently voluntarily at [facility] and seeking inpatient admission when a bed becomes available. [facility] Frontline Undraped Artist Model will continue seeking placement. Please contact the Controller Repairer And Tester Aquacultural Worker Supervisor ([phone]) and [facility] Undraped Artist Model ([phone]) for any needed changes in the Safety Plan. Safety plan has been provided to interdepartmental care team.
--- NOTE | 2021-06-20 14:11 | PDOC.ERCMPRO ---
- If Service Date Differs Date of service: 06/20/21 Time of Service: 14:11 Care Management Progress Note S/O: Israel is sitting up in bed when CM comes to meet with him today. He reports doing okay but says he is beginning to lose hope that he will ever be offered a bed at a psych facility. He recounts some of his experiences at [facility] and talks about how difficult it is to give up cocaine and other substances. Manny states he wishes he could go home and wait for a bed. CM advises him that he has to remain at [facility] while he awaits placement, as psych hospitals won't accept him from home. Israel acknowledges his understanding of this and is agreeable to staying at [facility]. A: Israel is a 35 year old male who presented to the ER on 06/17/21 for SI and substance use. P: Israel will remain at [facility] voluntarily and will be reassessed daily by [facility] until a placement at an inpatient psych facility can be secured for him. [facility], [facility], [facility], and [facility] for review. CM will continue to follow. - Status Status: Voluntary - Reason for Wait Reason for Wait: Inpatient Admission
[2021-06-20] MEDS: LORazepam 1 MG TAB 2 MG PO ×3 (14:21→23:42)
[2021-06-20 23:43] VITALS: BP 120/78; PULSE 99; RESP 20; O2SAT 99
[2021-06-21 08:32] LABS: Source Nasal/Nares
[2021-06-21 09:42] LABS: COVID-19 PCR Negative (Negative)
[2021-06-21] MEDS: LORazepam 1 MG TAB PO (09:54)
[2021-06-21 10:23] VITALS: BP 120/78; PULSE 103; TEMP 36.8; O2SAT 98
--- NOTE | 2021-06-21 13:48 | CMPROGNOTE_ITS ---
- If Service Date Differs Date of service: 06/21/21 Time of Service: 13:48 Care Management Progress Note S/O: Israel is sitting up in bed when CM meets with him today. CM advises him that he has a bed offer at [facility]. CM answers his questions and lets him know that he will be transported to [place] by [facility] Deputies. Israel is quite focused on going outside to smoke a cigarette before he leaves [facility]. He is advised transport won't be here until early afternoon and is told we will arrange for him to be able to smoke a cigarette right before getting into the car. Israel is provided a Nicotrol inhaler to hold him over. A: Israel is a 35 year old male who presented to the ER on 06/17/21 for SI and substance use. P: Israel is accepted for an inpatient psych admission by [facility]. He will follow up with his community providers and plan of care upon discharge from the facility. [facility] provide transportation to [place]. - Status Status: Voluntary - Reason for Wait Reason for Wait: Inpatient Admission ([facility])
--- NOTE | 2021-06-22 09:50 | PDOC.MHCN ---
Date of service: 06/22/21 Time of Service: 09:50 Mental Health Crisis Note Presenting Issue How did you arrive at the ED and why did you come: Pt arrived on 06.19.2021 for SI and SA and seeking inpatient treatment. Precipitating Factors Pt denied SI this am stating he is getting anxious about waiting. There are no signs of delusions. Disposition BEHAVIOR: Pt is pleasant and cooperative. He is still seeking treatment. EYE CONTACT: fair MOOD: tired as he was awoke by this clinician. AFFECT: congruent APPETITE: reported to be good has not eaten breakfast as of yet. SLEEP(trouble falling/staying asleep: Pt reported he is still having nightmares. Plan Pt was accepted by [facility] today and transported to their facility. Signature Clinician's Name/Title: Alexia Thompson MS, [facility] Emergency Services Clinician, [facility]
== END 2021-06-21 12:35 | disposition short-term general hospital (02) ==
PROVIDERS: Emergency Medicine; Physician Assistant; Emergency Provider Student in an Organized Health Care Education/Training Program
DX: F11.20 Opioid dependence, uncomplicated (principal); R45.851 Suicidal ideations; F41.9 Anxiety disorder, unspecified; R00.0 Tachycardia, unspecified; R68.83 Chills (without fever)
CPT/HCPCS: 36415; 51701; 80053; 80307; 87635; 93005; 96372; 99285; 80320; 80329; 81003; 81015; 84443; 84484; 85025; 93010; J2060

== ENCOUNTER 2024-09-21 09:55 | Emergency (ER) | payer SELFPAY ==
--- NOTE | 2024-09-21 09:45 | RT.EKG_ITS ---
APPROVED REPORT Exam: Resting ECG Reason for Exam: weak/dizzy Patient Location: E HR:82 bpm ECG Measurements Heart Rate 82 AXIS AR 128 P 79 QRSd 99 QRS 74 QT 365 T 64 QTc 427 Conclusion Sinus rhythm...normal P axis, V-rate 60- 99 No [place]
[2024-09-21 10:01] VITALS: BP 142/77; PULSE 92; RESP 20; TEMP 36.8; O2SAT 97
--- NOTE | 2024-09-21 10:04 | ED.GENADUL_ITS ---
Discharge Plan Disposition Patient Disposition: Home Discharge Details Clinical Impression: Fatigue Primary Care Provider: None,None ED Provider: Otoniel Sandoval Home Meds and New Rx's Prescriptions: No Action No Known Home Meds Discharge Instructions Instructions: Fatigue ED Additional Instructions: You were seen in the emergency department for your fatigue. Your lab work shows that your kidneys are working well. You have no signs of a diabetic emergency. Please go across the street to [facility] to discuss insurance access: [address], [place] [address]. As discussed, please return to the emergency department if you develop shortness of breath chest pain or if you pass out. Stand Alone Forms: Work Release Discharge Data Discharge Date/Time-TO BE ENTERED AT DEPARTURE: 09/21/24 11:12 HPI General Date/Time Provider Initiated Documentation: 09/21/24 10:04 . HPI Narrative: MDM This is a well-appearing normothermic and not tachycardic 39-year-old male with fatigue for which we will obtain basic labs. No pain out of proportion to suggest necrotizing soft tissue infection. Patient does not have black or bloody stool so I am not suspicious for GI bleed. No cough to suggest pneumonia so no indication for chest x-ray. In the absence of chest pain I am not suspicious for ACS so I did not obtain a troponin. Patient has had no fevers to suggest sepsis so I did not order blood cultures. No complaints of headache nor any gross neurological deficit so I did not feel that the patient's presentation represented a CVA. He is concerned about his access to insurance so we will refer to [facility]. Concerning the area on his left chin that he is concerned about there is no fluctuance to suggest abscess. No erythema to suggest cellulitis. I advised patient to begin twice daily warm compresses. He is has had no erythema migrans to suggest Lyme disease. Given no fevers will defer tickborne illness testing at this point in time. I considered intra- abdominal infection however the patient has not had abdominal pain nausea nor vomiting. Patient did insufflate drugs last week however in the absence of chest pain I did not feel that he was having ACS so I did not send a troponin. 11 AM CBC lacks anemia thrombocytopenia and leukocytosis. Basic metabolic panel lacks PETER. Very mild hypokalemia. No anion gap and normal bicarbonate?test not consistent with DKA. Patient furthermore has a normal blood glucose level. Patient has not been vomiting to suggest increased risk for ongoing potassium losses. Furthermore he is not on any diuretics or antihypertensive medications. For which patient will receive oral supplementation. I spoke community connections and advised them that the patient was coming over to discuss concerns. I have also asked helping to coordinate [facility] to place a referral for the patient to have a primary care provider. HPI This is a patient with a history of diabetes presenting with fatigue. The patient arrived by car. The patient reports experiencing sudden episodes of fatigue, which he attributes to his physically demanding job at a [employer]. 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 He describes instances where he experiences sudden hunger pangs, accompanied by shaking and a feeling of impending collapse. He also reports frequent urination but does not experience any burning sensation during urination. He reports no unintentional weight loss, fevers, or night sweats. The patient has been self-medicating with Ritalin, obtained from various sources, to manage his concentration issues at work. He is uncertain if his symptoms are related to this medication or his high sugar intake. On his chin he noticed a rash, which he believes is heat-related. He reports no current cough or expectoration. The patient has a primary care physician but expresses dissatisfaction with the care provided. Exam General: Well-appearing in no acute distress speaking in complete sentences. Head: Normocephalic, atraumatic. Eye: Extraocular eye movements intact. No conjunctival injection. No scleral icterus. Ear, nose, mouth, throat: Normal voice, handling secretions normally. On the left side of the patient's chin there is a small approximately 1 cm diameter area with some dried serosanguineous fluid. No fluctuance. No surrounding erythema. Neck: Trachea midline. Cardiovascular: Well-perfused distal extremities. Regular rate and rhythm. Respiratory: Nonlabored respiration. Clear lungs bilaterally. Gastrointestinal: Nondistended abdomen. Soft nontender. Musculoskeletal: No edema. Moving all 4 extremities spontaneously. Skin: Normal for age and race, grossly normal temperature and turgor. No acute rash. Neurologic: Alert and appropriate, no apparent acute deficits. Psychiatric: Mood and manner are appropriate. Grooming and personal hygiene are appropriate. Related Data Home Medications ?Medication ?Instructions ?Recorded ?Confirmed Unknown [No Known Home Meds] 09/21/24 0 09/21/24 Allergies Allergy/AdvReac Type Severity Reaction Status Date / Time No Known Allergies Allergy Verified 09/21/24 10:06 General TAI: 2 PFSH All Active Problems (Updated 09/21/24 @ 10:42 by Otoniel Sandoval MD) Fatigue (Acute) ADHD (Acute) Opioid dependence (Acute) Anxiety (Chronic) Social History Smoking/Tobacco Use Status: Current every day Smoking risk assessment performed?: Yes Alcohol Intake: former Drug use: Binges Substance use type: crack/cocaine, IV drugs, methamphetamine and prescription drug Do you feel safe at home: Yes Do you feel safe in your relationship?: Yes
[2024-09-21 10:23] VITALS: BP 142/77; PULSE 92; RESP 20; TEMP 36.8; O2SAT 97
[2024-09-21 10:49] LABS: Abs Immature Grans 0.01 10^3/uL (0.0-0.06); Absolute Basophil Count 0.05 10^3/uL (0.0-0.2); Absolute Eosinophil Count 0.19 10^3/uL (0.0-0.7); Absolute Monocyte Count 0.49 10^3/uL (0.1-0.8); Basophils % 1.1 %; Eosinophils % 4.1 %; HCT 40.8 % (40.0-50.0); HGB 13.9 g/dL (13.5-17.5); Immature Grans % 0.2 %; Lymphocytes % 36.6 %; MCH 29.1 pg (27.0-33.0); MCHC 34.1 % (32.0-36.0); MCV 85 fL (80-95); MPV 10.1 fL (8.0-11.0); Monocytes % 10.6 %; Neutrophils % 47.4 %; Platelet Count 272 10^3/uL (130-400); RBC 4.78 10^6/uL (4.36-5.78); RDW 12.2 % (11.8-14.1); RDW-SD 38.4 fL; WBC 4.64 10^3/uL (4.4-10.8)
[2024-09-21 10:54] LABS: Anion Gap 8.6 mmol/L (3-11); BUN 16 mg/dL (7-18); CO2 30.4 mmol/L (21.0-32.0); CREATININE 0.9 mg/dL (0.70-1.30); Chloride 102 mmol/L (98-107); Estimated GFR 110.73 (mL/min/1.73m2); Glucose 92 mg/dL (74-106); Potassium 3.3 mmol/L (3.5-5.1); Sodium 141 mmol/L (136-145)
[2024-09-21 11:20] VITALS: BP 138/86; PULSE 76; RESP 14; O2SAT 98
== END 2024-09-21 11:12 | disposition home or self-care (01) ==
PROVIDERS: Emergency Provider Emergency Medicine
DX: R53.83 Other fatigue (principal); R53.1 Weakness; E87.6 Hypokalemia; E11.9 Type 2 diabetes mellitus without complications; F17.210 Nicotine dependence, cigarettes, uncomplicated
CPT/HCPCS: 80048; 82962; 93005; 99284; 85025; 93010; 99283